=== PATIENT | female | born 1945 | race Caucasian/White ===

== ENCOUNTER 2017-12-14 06:24 | Day surgery (SDC) | payer MEDICARE, OTHER, BC ==
[2017-09-07 11:08] VITALS: BMI 34.3
[2017-12-14] MEDS ORDERED: Midazolam 2 MG/2 ML VIAL ONE (07:33)
[2017-12-14] MEDS ORDERED: Propofol 10 mg/ml Inj (20 ML) ONE (07:33)
[2017-12-14] MEDS ORDERED: Bupivacaine 0.25% 20 ML INJ IJ ONE (07:36)
[2017-12-14] MEDS ORDERED: Lidocaine/Epinephrine 1% 1:100000 10 ML IJ ONE (07:36)
[2017-12-14] MEDS ORDERED: ceFAZolin IV 1 gm in Dextrose 2 GM/100 ML BAG IVPB ONE (08:08)
[2017-12-14] MEDS ORDERED: Neostigmine Methylsulfate 3mg/3ml Syringe IV ONE (11:13)
[2017-12-14] MEDS ORDERED: HYDROmorphone 0.5 mg/0.5 ml ISec IVP PRN (12:29)
--- NOTE | 2017-12-14 12:31 | PCM.SURG1 ---
Surgeon's Initial Post Op Note - Surgeon's Notes Surgeon: [facility] Attorney: [id number], Jose MAR Type of Anesthesia: General Endo, Block Regional Pre-Operative Diagnosis: Incisional Hernia Operative Findings: Umbilical hernia. Supraumbilical hernia. scar hernia. Diastasis recti Post-Operative Diagnosis: Incisional Hernia Operation Performed: Robotic assisted incisional hernia repairs with mesh: 1. Umbilical. 2. Supraumbilical. 3. scar hernia. Repair of diastasis. Laparoscopic lysis of adhesions. TAP block Specimen/Specimens Removed: Hernia contents, antimesenteric portion of small bowel Estimated Blood Loss: EBL {In ML}: 30 Blood Products Given: N/A Drains Used: No Drains Post-Op Condition: Good Date of Surgery/Procedure: 12/14/17 Time of Surgery/Procedure: 08:00
[2017-12-14] MEDS ORDERED: Oxycodone/Acetaminophen 5/325 mg Tab PO ONE ×2 (12:40→14:30)
[2017-12-14] MEDS ORDERED: Lactated Ringer's 1,000 ML IV ONE (13:15)
[2017-12-14 13:58] VITALS: RESP 18; O2SAT 95
[2017-12-14 15:08] VITALS: BP 134/69; PULSE 79; TEMP 97.6
--- NOTE | 2017-12-15 04:43 | OP ---
PROCEDURE DATE: 12/14/2017 PREOPERATIVE DIAGNOSES: 1. Multiple incisional hernia. 2. Recurrent bowel obstruction. 3. Abdominal pain. 4. Possible extensive peritonealization due to previous colon resection and section. POSTOPERATIVE DIAGNOSES: 1. The patient had an incarcerated umbilical incisional hernia. 2. The patient had supraumbilical incisional hernia. 3. The patient had incisional hernia at section scar site. 4. The patient had extensive numerous peritoneal, small bowel, and colonic adhesion to the anterior abdominal wall. PROCEDURES DONE: 1. Robotic incisional hernia repair with a mesh, supraumbilical. 2. Robotic incarcerated hernia repair with a mesh. 3. Robotic incisional hernia repair at the section scar site. 4. Robotic serosal tear repair of small bowel. 5. Robotic extensive lysis of adhesion and enterolysis. 6. Laparoscopic bilateral transverse abdominis plane block placement. SURGEON: Reginald Burrows MD ANESTHESIA: General endotracheal tube anesthesia. ESTIMATED BLOOD LOSS: 20 mL. DRAINS: None. PATHOLOGY: Incarcerated umbilical hernial sac and consent and other incisional hernial sac and content were sent for the pathology. COMPLICATIONS: None. INTRAOPERATIVE FINDINGS: The patient has extensive omental, small bowel, and colonic adhesions to the anterior abdominal wall, and extensive enterolysis as well as lysis of adhesion was done. Approximately, 60 to 90-minute extra time was spent for enterolysis and in order to gain access to the peritoneal cavity. The small bowel antimesenteric border was firmly adhesed to the anterior abdominal wall, and small bowel was taken down with the THERESA to prevent the bowel injury, and the patient had incarcerated umbilical hernia. The patient had another incisional hernia in the supraumbilical area and one small incisional hernia in the scar site, and the procedure was done by Dr. Burrows; custody assistant, Agnieszka Hensley FOOD SERVICE AGENT; and Angel Jeffries DO, PGY-2 resident. DESCRIPTION OF PROCEDURE: On intraoperative steps, this 72-year-old female who was diagnosed with multiple incisional hernias and abdominal pain, and the patient was recently admitted with a small bowel obstruction, and the patient was consented for robotic incisional hernia repair with a mesh, possible open laparoscopic assisted, brought to the OR, placed supine on the operating table. After induction of anesthesia, the abdomen was prepped and draped in the usual sterile fashion. The right upper quadrant incision was made using Visiport technique. Peritoneal cavity was entered. Pneumo was created, and the patient had extensive omental and small bowel and colonic adhesion to the anterior abdominal wall, and first lysis of adhesion was done. Another port was placed. Extensive lysis was done, but approximately, 60 to 90 minutes, and another four 8 mm port was placed in right lower quadrant, left flank, left upper quadrant, left lower quadrant, and after a robot was brought in, camera arm as well as arm 1 and arm 2 was docked. The small bowel was firmly adjacent to the umbilical port site at the antimesenteric border, and into the , the small bowel was taken down using the THERESA to prevent serosal injury of the small bowel, and after that, the patient was found to have multiple hernias all over abdomen, and first umbilical hernia defect was closed with #1 Prolene V-lock suture, and there was another supraumbilical defect was also closed with #1 Prolene V-lock suture in a continuous fashion. There are two layers, and the defect was also closed with #1 Prolene V-lock suture, and after the proper closure of the defect, the first 15 x 18 x 8 cm and another 9 x 7 cm mass was included, and both mesh was implanted to cover the supraumbilical incision as well as C section site, incisional hernial defect, and after that, laparoscopic bilateral TAP block was given, 30:30 mL of Marcaine was injected on both sides in the transverse abdominal muscle plain block, and all the pneumo was deflated, all the instruments were taken out. Before implanting the mesh, the robot was undocked and all the port sites were closed in 2 layers; the subcu with a 2-0 Vicryl, skin with 4-0 Monocryl, and dry sterile dressing was applied. The patient tolerated the procedure well. Counts of instrument and gauze were correct. There was no apparent complication. The patient was sent to the postanesthesia care unit in stable condition. Reginald Burrows MD [facility] # [id number]
== END 2017-12-14 16:05 | disposition home or self-care (01) ==
LOC: C.SDS 06:24
PROVIDERS: ATTEND Surgery Surgical Critical Care
DX: K42.0 Umbilical hernia with obstruction, without gangrene (principal); K43.2 Incisional hernia without obstruction or gangrene; N73.6 Female pelvic peritoneal adhesions (postinfective)
CPT/HCPCS: 49329; 49653; 49654; 64488; 88302; J0690; J1170; J2250; J2405; J2704; J2710; J3010; J7120